=== PATIENT | female | born 1980 | race Caucasian/White ===

== ENCOUNTER 2019-11-06 18:32 | Emergency (ER) | payer BC, OTHER ==
--- NOTE | 2019-11-06 18:49 | UC ---
General HPI - HPI Summary HPI Summary: 39 yo female c/o notice large worm during bowel movement just prior to arrival. Recent travel to [place] and [place]. Returned 2 weeks ago. Has been self isolating since then. Had a slight cough a couple weeks ago, but resolved. No fever / chills / sob. No abd pain. No d/c. No h/a. - History of Current Complaint Chief Complaint: UCGI Stated Complaint: PERSONAL Time Seen by Provider: 11/06/19 18:48 Hx Obtained From: Patient Hx Last Menstrual Period: 3 weeks ago Pain Intensity: 0 - Allergy/Home Medications Allergies/Adverse Reactions: Allergies Allergy/AdvReac Type Severity Reaction Status Date / Time Penicillins AdvReac Diarrhea Verified 11/06/19 18:46 Home Medications: Home Medications Praziquantel [Biltricide] 1,200 mg PO TID #6 tab 11/06/19 [Rx] PMH/Surg Hx/FS Hx/Imm Hx Previously Healthy: Yes - Surgical History Surgical History: None - Family History Known Family History: Positive: None - Social History Alcohol Use: Occasionally Substance Use Type: None Smoking Status (MU): Never Smoked Tobacco Review of Systems All Other Systems Reviewed And Are Negative: Yes Constitutional: Positive: Negative Skin: Positive: Negative Eyes: Positive: Negative ENT: Positive: Negative Respiratory: Positive: Negative Cardiovascular: Positive: Negative Gastrointestinal: Positive: Other - see hpi Genitourinary: Positive: Negative Motor: Positive: Negative Neurovascular: Positive: Negative Musculoskeletal: Positive: Negative Neurological/Mental Status: Positive: Negative Psychological: Positive: Negative Is Patient Immunocompromised?: No Physical Exam Triage Information Reviewed: Yes Appearance: Well-Appearing, Well-Nourished Vital Signs Reviewed: Yes Eye Exam: Normal ENT Exam: Normal Neck exam: Normal Respiratory Exam: Normal Respiratory: Positive: Chest non-tender, Lungs clear, Normal breath sounds, No respiratory distress, No accessory muscle use Cardiovascular Exam: Normal Cardiovascular: Positive: RRR, Brisk Capillary Refill Abdominal Exam: Other - mild tender, nonfocal. Nonacute. Nondistended Abdomen Description: Negative: CVA Tenderness (R), CVA Tenderness (L) Bowel Sounds: Positive: Present Musculoskeletal Exam: Normal - gait steady, moves x 4 ext's Neurological Exam: Normal - grossly nonfocal Psychological Exam: Normal - conversing easily and appropriately Skin Exam: Normal - no visible or reported rash nondiaphoretic Course/Dx - Course Course Of Treatment: Ms. Cruz brought the specimen with her, appears long (over 6 inches). Consider fluke / tapeworm. Praziquantel 20mg/kg po x 3 doses over one day (4-6 hours apart). Will send specimen to lab for analysis. I called pharmacist, praziquantel is not locally available. However, h Reviewed coa /tx plan with pt. Household contact to check with pcp. Questions as posed answered to the best of my ability. - Diagnoses Provider Diagnosis: Intestinal worms Discharge ED - Sign-Out/Discharge Documenting (check all that apply): Patient Departure All imaging exams completed and their final reports reviewed: No Studies - Discharge Plan Condition: Stable Disposition: HOME Prescriptions: Praziquantel [Biltricide] 1,200 mg PO TID #6 tab Patient Education Materials: Tapeworm Infection (ED) Referrals: No Primary Care Phys,NOPCP [Primary Care Provider] - Additional Instructions: Hydrate. Please follow up with your primary care physician. Dr. Wei, call to schedule a routine appointment Please seek medical attention for worse or new problems. - Billing Disposition and Condition Condition: STABLE Disposition: Home
[2019-11-06 19:57] VITALS: BP 132/69
--- NOTE | 2019-11-10 09:18 | UC ---
- Progress Note Progress Note: PATIENT CALLED. NO ANSWER. NO VOICEMAIL. SPECIMEN IDENTIFIED ASCARIS LUMBRICOIDES. PRAZIQUANTEL LIKELY WILL NOT COVER FOR THIS PARASITE. ALBENDAZOLE 400 MG PO 1 SENT TO [facility]. PLEASE ADVISE PATIENT THAT SHE SHE MAY EXCRETE WORMS FOR AN ADDITIONAL 10-14 DAYS AFTER TREATMENT. Course/Dx - Diagnoses Provider Diagnoses: Intestinal worms Discharge ED - Sign-Out/Discharge Documenting (check all that apply): Post-Discharge Follow Up All imaging exams completed and their final reports reviewed: No Studies - Discharge Plan Condition: Stable Disposition: HOME Prescriptions: Albendazole 400 mg PO ONCE #2 tablet Praziquantel [Biltricide] 1,200 mg PO TID #6 tab Patient Education Materials: Tapeworm Infection (ED) Referrals: No Primary Care Phys,NOPCP [Primary Care Provider] - Additional Instructions: Hydrate. Please follow up with your primary care physician. Dr. Wei, call to schedule a routine appointment Please seek medical attention for worse or new problems. - Billing Disposition and Condition Condition: STABLE Disposition: Home
== END 2019-11-06 20:07 | disposition home or self-care (01) ==
LOC: UCEAST 18:32
DX: B82.0 Intestinal helminthiasis, unspecified (principal); Z88.0 Allergy status to penicillin
CPT/HCPCS: 99212; G0463